=== PATIENT | male | born 1970 | race Caucasian/White ===

== ENCOUNTER 2023-01-22 07:38 | Emergency (ER) | payer BC ==
[~2023-01-22] VITALS: Ht 182.9 cm; Wt 113.4 kg
[2023-01-22 10:44] VITALS: BP 132/90
[2023-01-22] MEDS ORDERED: CEPH500 PO (11:10)
[2023-01-22] MEDS ORDERED: IBU800 M1 PO (11:15)
== END 2023-01-22 11:15 | disposition home or self-care (01) ==
LOC: ER 07:38
DX: S62.522A Displaced fracture of distal phalanx of left thumb, initial encounter for closed fracture (principal); W32.0XXA Accidental handgun discharge, initial encounter
CPT/HCPCS: 12002; 73140; 90471; 90714; 90715; 96374-59; 96375-59; 96376-59; 99284-25; J0690; J1885; J2405; J3010